=== PATIENT | female | born 1980 | race Caucasian/White ===

== ENCOUNTER 2018-03-26 07:04 | Day surgery (SDC) | payer OTHER, BC ==
[2018-03-26] MEDS: CEFAZOLIN 2 GM/50 ML (PMX) 50 ML IVPB (09:43)
[2018-03-26] MEDS ORDERED: MIDAZOLAM 1 MG/ML 2 ML INJ (09:45)
[2018-03-26] MEDS ORDERED: FENTAnyl 50 MCG/ML VIAL (09:45)
[2018-03-26] MEDS ORDERED: BUPIVACAINE 0.5% (SDV) 30 ML INJ (10:14)
[2018-03-26] MEDS ORDERED: PROPOFOL 20 ML (10:25)
[2018-03-26] MEDS ORDERED: CEFAZOLIN 1 GM INJ (10:25)
[2018-03-26] MEDS ORDERED: LIDOCAINE 2% (SDV) 5 ML INJ (10:25)
[2018-03-26] MEDS ORDERED: ONDANSETRON 4 MG INJ (10:26)
[2018-03-26] MEDS ORDERED: ONDANSETRON 4 MG INJ IV (11:00)
[2018-03-26] MEDS ORDERED: FENTAnyl 50 MCG/ML VIAL IV (11:00)
[2018-03-26] MEDS ORDERED: MEPERIDINE 25 MG INJ IV (11:00)
[2018-03-26] MEDS ORDERED: DIPHENHYDRAMINE 50 MG INJ IV (11:00)
[2018-03-26] MEDS ORDERED: HYDROmorphONE 1 MG/5 ML IV SYRINGE IV (11:00)
[2018-03-26] MEDS ORDERED: METOCLOPRAMIDE 10 MG INJ IV (11:00)
[2018-03-26] MEDS: HYDROmorphONE 1 MG/5 ML IV SYRINGE IV (11:45)
== END 2018-03-26 13:00 | disposition home or self-care (01) ==
LOC: SDS 07:04
DX: N85.00 Endometrial hyperplasia, unspecified (principal); N76.6 Ulceration of vulva; D25.9 Leiomyoma of uterus, unspecified
CPT/HCPCS: 58558; 88305; 88312; 93005

== ENCOUNTER 2019-05-28 21:41 | Emergency (ER) | payer OTHER ==
[2019-05-28 22:32] LABS: ADD MAN DIFF? NO
[2019-05-28 22:36] LABS: WHITE BLOOD COUNT 10.6 10^3/ul (4.8-10.8)
[2019-05-28 22:36] LABS: BASOPHILS % 0.2 % (0.0-2.0); EOSINOPHILS # 0.1 10^3/ul (0.0-0.5); EOSINOPHILS % 1.2 % (0.0-7.0); HEMATOCRIT 37.4 % (37.0-47.0); HEMOGLOBIN 12.8 g/dl (12.0-16.0); LYMPHOCYTES # 2.9 10^3/ul (0.8-2.9); LYMPHOCYTES % 27.1 % (15.0-51.0); MEAN CORPUSCULAR HEMOGLOBIN 31.5 pg (29.0-33.0); MEAN CORPUSCULAR HGB CONC 34.2 g/dl (32.0-37.0); MEAN CORPUSCULAR VOLUME 92.1 fl (82.0-101.0); MEAN PLATELET VOLUME 12.6 fl (7.4-10.4); MONOCYTE # 0.8 10^3/ul (0.3-0.9); NEUTROPHIL # 6.7 10^3/ul (1.6-7.5); NEUTROPHILS % 63.3 % (39.0-77.0); PLATELET COUNT 147 10^3/UL (140-415); RED BLOOD COUNT 4.06 10^6/ul (4.20-5.40); RED CELL DISTRIBUTION WIDTH 12.2 % (11.5-14.5)
[2019-05-28 22:51] LABS: ANION GAP 8 (5-13); BLOOD UREA NITROGEN 14 mg/dl (7-20); CALCIUM 9.2 mg/dl (8.4-10.2); CARBON DIOXIDE 24 mmol/L (21-31); CHLORIDE 105 mmol/L (97-110); CREATININE 0.68 mg/dl (0.44-1.00); Estimated GFR > 60 mL/min (>60); GLUCOSE 103 mg/dl (70-220); POTASSIUM 3.8 mmol/L (3.5-5.1); SODIUM 137 mmol/L (135-144)
== END 2019-05-28 23:39 | disposition home or self-care (01) ==
LOC: E/R 21:41
DX: R42 Dizziness and giddiness (principal); I49.3 Ventricular premature depolarization
CPT/HCPCS: 80048; 81025; 85025; 93005; 99284-25